=== PATIENT | female | born 2000 | race African-American/Black ===

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

== ENCOUNTER 2024-06-05 08:19 | Emergency (ER) | payer MEDICAID, OTHER ==
[~2024-06-05] VITALS: Ht 165.1 cm; Wt 77.1 kg
[2024-06-05 08:25] VITALS: O2SAT 100
[2024-06-05 10:18] LABS: HCG SCREEN NEGATIVE
[2024-06-05 10:53] LABS: CLARITY URINE CLEAR (CLEAR); COLOR URINE YELLOW (YELLOW); GLUCOSE URINE NEGATIVE (NEGATIVE); KETONES URINE NEGATIVE (NEGATIVE); LEUKOCYTE ESTERASE URINE 1+ (NEGATIVE); NITRITE URINE NEGATIVE (NEGATIVE); OCCULT BLOOD URINE 1+ (NEGATIVE); PH URINE 6.5 (4.5-8.0); PROTEIN URINE TRACE (NEGATIVE); SPECIFIC GRAVITY URINE 1.024 (1.005-1.030); UROBILINOGEN URINE 0.2 E.U./dL (0.2-1.0)
[2024-06-05 11:35] LABS: SQUAMOUS EPITHELIAL CELL URINE 1+ /lpf (RARE/1+)
[2024-06-05 11:36] LABS: BACTERIA URINE 4+; WBC URINE 25-50 /hpf (0-2)
[2024-06-05] MEDS ORDERED: NITR-87 MT (11:55)
[2024-06-05 12:06] VITALS: BP 105/66; PULSE 74; RESP 18; TEMP 37.05852; O2SAT 100
[2024-06-07 14:08] LABS: CHLAMYDIA TRACHOMATIS NAA Negative (Negative); NEISSERIA GONORRHOEAE NAA Negative (Negative)
== END 2024-06-05 12:36 | disposition home or self-care (01) ==
LOC: ER 08:19
DX: N39.0 Urinary tract infection, site not specified (principal); Z11.3 Encounter for screening for infections with a predominantly sexual mode of transmission
CPT/HCPCS: 87491; 87591; 81003; 81025; 84703; 86592; 87086; 87186; 87077; 36415; 99283; Z7610